=== PATIENT | female | born 1970 | race Caucasian/White ===

== ENCOUNTER 2019-08-31 17:17 | Inpatient (IN) | payer OTHER, BC ==
[~2019-08-31] VITALS: Ht 170.2 cm; Wt 95.4 kg
[~2019-08-31 17:17] MED LIST: CYCL5TAB10; LISI2.5T PO
[2019-08-31] MEDS ORDERED: SODIUM CHLORIDE FLUSH 10ML SYR IVF ONE (18:00)
[2019-08-31 18:09] LABS: MEAN CORPUSCULAR HEMOGLOBIN 39.6 pg (27.0-34.8); MEAN CORPUSCULAR HGB CONC 34.8 g/dL (32.4-35.8); MEAN PLATELET VOLUME 7.5 fL (7.4-10.4); PLATELET COUNT 146 x10^3/uL (130-400); RED BLOOD COUNT 2.18 x10^6/uL (3.82-5.3); RED CELL DISTRIBUTION WIDTH 15.5 % (9.6-15.2)
--- NOTE | 2019-08-31 18:12 | NUR ---
PT REQUESTING WATER TO PROVIDE URINE SAMPLE, OK TO HAVE WATER PER PA. PT RESTING IN GURNEY, FRIEND AT BEDSIDE. CALL LIGHT WITHIN REACH.
[2019-08-31 18:13] LABS: ALBUMIN 3.2 g/dL (3.4-5.0); ANION GAP 15 mmol/L (5-15); CALCIUM 9.1 mg/dL (8.5-10.1); CHLORIDE 82 mmol/L (98-107)
[2019-08-31 18:19] LABS: ALANINE AMINOTRANSFERASE 27 U/L (12-78); ALKALINE PHOSPHATASE 65 U/L (45-117); BILIRUBIN,TOTAL 4.1 mg/dL (0.2-1.0); CREATININE 6.03 mg/dL (0.55-1.02); TOTAL PROTEIN 7.9 g/dL (6.4-8.2); TROPONIN I < 0.015 ng/mL (0.000-0.045)
--- NOTE | 2019-08-31 18:31 | NUR ---
PT UP TO BEDSIDE COMMODE FOR URINE SAMPLE
--- NOTE | 2019-08-31 18:48 | NUR ---
REPORT RECEIVED FROM TAYLER CARDENAS
[2019-08-31 18:56] LABS: MD YES
[2019-08-31 19:00] LABS: EOS#(MANUAL) 0.07 x10^3/uL (0.0-0.4); EOS% (MANUAL) 1 % (1-7); LYMPH#(MANUAL) 0.92 x10^3/uL (1-3.4); LYMPHS% (MANUAL) 13 % (22-44); MONOS#(MANUAL) 0.78 x10^3/uL (0.3-2.7); MONOS% (MANUAL) 11 % (2-9); SEG#(MANUAL) 5.33 x10^3/uL (1.8-6.8); SEGS% (MANUAL) 75 % (42-75)
[2019-08-31] MEDS ORDERED: ALBUMIN HUMAN 25% 100 ML IV ONE (19:00)
[2019-08-31] MEDS ORDERED: SODIUM CHLORIDE 0.9% 1,000ML IVBOLUS ONE (19:00)
[2019-08-31] MEDS ORDERED: SODIUM CHLORIDE 0.9% 1,000 ML IV ONE (19:00)
[2019-08-31 19:02] LABS: <PLATELET ESTIMATE> ADEQUATE; <PLT MORPHOLOGY> NORMAL PLT MORPH
[2019-08-31 19:12] LABS: MICROSCOPIC INDICATED
[2019-08-31 19:19] LABS: INTERNATIONAL NORMALIZED RATIO 1.42 (0.93-1.1); PROTHROMBIN TIME 15.1 Seconds (9.6-11.5)
[2019-08-31] MEDS ORDERED: ONDANSETRON 2MG/ML, 2ML IVPush PRN (20:00)
[2019-08-31 20:22] LABS: CHLORIDE,URINE RANDOM 21 mmol/L; POTASSIUM,URINE RANDOM 56 mmol/L; SODIUM,URINE RANDOM 13 mmol/L
[2019-08-31 20:46] VITALS: BP 102/67
[2019-08-31] MEDS ORDERED: OXYC-306 PO (20:55)
[2019-08-31] MEDS ORDERED: SODIUM CHLORIDE 0.9% 1,000 ML IV SCH (21:00)
[2019-08-31] MEDS ORDERED: TRIA15CR61 TP (21:01)
[2019-08-31] MEDS ORDERED: DICL100G29 TP (21:01)
[2019-08-31] MEDS ORDERED: METO-264 PO (21:01)
[2019-08-31] MEDS ORDERED: FURO20TA3 PO (21:01)
[2019-08-31 21:14] LABS: BILIRUBIN, DIRECT 2.1 mg/dL (0.1-0.2)
[2019-08-31 21:16] LABS: BILIRUBIN,INDIRECT 1.7 mg/dL (0.0-2.0); BILIRUBIN,TOTAL 3.8 mg/dL (0.2-1.0); CREATINE KINASE, TOTAL 56 U/L (26-192)
[2019-08-31] MEDS: CEFTRIAXONE PMX 1GM/50ML 50 ML IV SCH (23:27)
[2019-09-01 00:42] VITALS: BP 100/63
[2019-09-01 05:47] LABS: MEAN CORPUSCULAR HEMOGLOBIN 39.4 pg (27.0-34.8); MEAN CORPUSCULAR HGB CONC 34.3 g/dL (32.4-35.8); MEAN CORPUSCULAR VOLUME 114.7 fL (80-100); MEAN PLATELET VOLUME 6.8 fL (7.4-10.4); PLATELET COUNT 118 x10^3/uL (130-400); RED BLOOD COUNT 2.15 x10^6/uL (3.82-5.3); RED CELL DISTRIBUTION WIDTH 15.6 % (9.6-15.2)
[2019-09-01 06:11] LABS: ANION GAP 13 mmol/L (5-15); CALCIUM 9.2 mg/dL (8.5-10.1); CHLORIDE 83 mmol/L (98-107)
[2019-09-01 06:18] LABS: BASOPHILS # (AUTO) 0.01 x10^3/uL (0-0.1); BASOPHILS % (AUTO) 0 % (0-1); EOSINOPHILS # (AUTO) 0.08 x10^3/uL (0-0.4); EOSINOPHILS % (AUTO) 2 % (1-7); LYMPHOCYTES # (AUTO) 0.69 x10^3/uL (1-3.4); LYMPHOCYTES % (AUTO) 14 % (22-44); MD SCAN; MONOCYTES # (AUTO) 0.63 x10^3/uL (0.2-0.8); MONOCYTES % (AUTO) 13 % (2-9); NEUTROPHILS # (AUTO) 3.65 x10^3/uL (1.8-6.8); NEUTROPHILS % (AUTO) 72 % (42-75)
[2019-09-01 06:22] LABS: CREATININE 6.02 mg/dL (0.55-1.02)
[2019-09-01 06:46] VITALS: BP 107/64
[2019-09-01] MEDS: ALBUMIN HUMAN 25% 100 ML IV SCH ×3 (10:59→22:46)
[2019-09-01 12:27] VITALS: BP 93/59
[2019-09-01 17:47] LABS: ANA SCREEN POSITIVE (Negative)
[2019-09-01 17:49] LABS: ANTI-NUCLEAR ANTIBODY PATTERN NUCLEOLAR
[2019-09-01] MEDS: OXYcodone IR 5MG TABLET PO PRN (18:11)
[2019-09-01 19:41] VITALS: BP 100/60
[2019-09-02] MEDS: CEFTRIAXONE PMX 1GM/50ML 50 ML IV SCH (00:11)
[2019-09-02 00:13] VITALS: BP 105/69
[2019-09-02 05:19] LABS: MEAN CORPUSCULAR HEMOGLOBIN 38.6 pg (27.0-34.8); MEAN CORPUSCULAR HGB CONC 33.3 g/dL (32.4-35.8); MEAN CORPUSCULAR VOLUME 115.7 fL (80-100); PLATELET COUNT 115 x10^3/uL (130-400); RED BLOOD COUNT 1.97 x10^6/uL (3.82-5.3); RED CELL DISTRIBUTION WIDTH 15.4 % (9.6-15.2)
[2019-09-02 05:28] LABS: CHLORIDE 84 mmol/L (98-107)
[2019-09-02 05:36] LABS: ALANINE AMINOTRANSFERASE 21 U/L (12-78); ALBUMIN 3.8 g/dL (3.4-5.0); ALKALINE PHOSPHATASE 57 U/L (45-117); ANION GAP 14 mmol/L (5-15); BILIRUBIN,TOTAL 3.7 mg/dL (0.2-1.0); CREATININE 5.76 mg/dL (0.55-1.02); TOTAL PROTEIN 7.6 g/dL (6.4-8.2)
[2019-09-02 05:45] LABS: BASOPHILS # (AUTO) 0.01 x10^3/uL (0-0.1); BASOPHILS % (AUTO) 0 % (0-1); EOSINOPHILS # (AUTO) 0.08 x10^3/uL (0-0.4); EOSINOPHILS % (AUTO) 2 % (1-7); LYMPHOCYTES # (AUTO) 0.53 x10^3/uL (1-3.4); LYMPHOCYTES % (AUTO) 11 % (22-44); MD SCAN; MONOCYTES # (AUTO) 0.57 x10^3/uL (0.2-0.8); MONOCYTES % (AUTO) 12 % (2-9); NEUTROPHILS % (AUTO) 75 % (42-75)
[2019-09-02 06:48] VITALS: BP 100/62
[2019-09-02] MEDS ORDERED: FUROSEMIDE 40 MG/4 ML IV ONE (10:00)
[2019-09-02] MEDS: OXYcodone IR 5MG TABLET PO PRN ×2 (10:42→20:43)
[2019-09-02 12:15] VITALS: BP 102/66
[2019-09-02 19:41] VITALS: BP 97/61
[2019-09-03] VITALS (7 sets, daily range): BP systolic 98–119; BP diastolic 62–71
[2019-09-03] MEDS: CEFTRIAXONE PMX 1GM/50ML 50 ML IV SCH ×2 (00:22→23:53)
[2019-09-03 06:32] LABS: MEAN CORPUSCULAR HEMOGLOBIN 39.5 pg (27.0-34.8); MEAN CORPUSCULAR HGB CONC 34.4 g/dL (32.4-35.8); MEAN CORPUSCULAR VOLUME 114.8 fL (80-100); PLATELET COUNT 120 x10^3/uL (130-400); RED BLOOD COUNT 2.08 x10^6/uL (3.82-5.3); RED CELL DISTRIBUTION WIDTH 15.7 % (9.6-15.2)
[2019-09-03 06:36] LABS: ALBUMIN 3.7 g/dL (3.4-5.0); ANION GAP 14 mmol/L (5-15); CHLORIDE 85 mmol/L (98-107)
[2019-09-03 06:39] LABS: ALANINE AMINOTRANSFERASE 22 U/L (12-78); ALKALINE PHOSPHATASE 54 U/L (45-117); BILIRUBIN,TOTAL 3.3 mg/dL (0.2-1.0); CREATININE 5.41 mg/dL (0.55-1.02); TOTAL PROTEIN 7.8 g/dL (6.4-8.2)
[2019-09-03 06:48] LABS: BASOPHILS # (AUTO) 0.07 x10^3/uL (0-0.1); BASOPHILS % (AUTO) 1 % (0-1); EOSINOPHILS % (AUTO) 4 % (1-7); LYMPHOCYTES # (AUTO) 0.58 x10^3/uL (1-3.4); LYMPHOCYTES % (AUTO) 13 % (22-44); MD SCAN; MONOCYTES # (AUTO) 0.43 x10^3/uL (0.2-0.8); MONOCYTES % (AUTO) 9 % (2-9); NEUTROPHILS # (AUTO) 3.35 x10^3/uL (1.8-6.8); NEUTROPHILS % (AUTO) 72 % (42-75)
[2019-09-03 09:28] LABS: INTERNATIONAL NORMALIZED RATIO 1.48 (0.93-1.1); PROTHROMBIN TIME 15.7 Seconds (9.6-11.5)
[2019-09-03] MEDS: LACTULOSE 10 GM/15 ML UDC PO SCH ×3 (09:30→20:29)
[2019-09-03] MEDS: OXYcodone IR 5MG TABLET PO PRN ×2 (10:51→17:00)
[2019-09-03 17:59] LABS: INTERNATIONAL NORMALIZED RATIO 1.47 (0.93-1.1); PROTHROMBIN TIME 15.6 Seconds (9.6-11.5)
[2019-09-04] VITALS (8 sets, daily range): BP systolic 96–104; BP diastolic 54–67
[2019-09-04] MEDS: OXYcodone IR 5MG TABLET PO PRN ×3 (00:03→19:18)
[2019-09-04 04:41] LABS: INTERNATIONAL NORMALIZED RATIO 1.52 (0.93-1.1); PROTHROMBIN TIME 16.2 Seconds (9.6-11.5)
[2019-09-04 04:43] LABS: ALBUMIN 3.3 g/dL (3.4-5.0); ANION GAP 12 mmol/L (5-15); CALCIUM 9.2 mg/dL (8.5-10.1); CHLORIDE 88 mmol/L (98-107); CREATININE 4.51 mg/dL (0.55-1.02)
[2019-09-04] MEDS: LACTULOSE 10 GM/15 ML UDC PO SCH ×2 (10:07→20:05)
[2019-09-04] MEDS ORDERED: PHYTONADIONE 5 MG in SODIUM CHLORIDE 0.9% 50 ML IV ONE (11:00)
[2019-09-04] MEDS ORDERED: DIPHENHYDRAMINE 50 MG/ML, 1ML ONE (23:46)
[2019-09-04] MEDS: DIPHENHYDRAMINE 50 MG/ML, 1ML IVPush PRN (23:51)
[2019-09-04] MEDS: CEFTRIAXONE PMX 1GM/50ML 50 ML IV SCH (23:53)
[2019-09-05 00:01] VITALS: BP 103/68
[2019-09-05 04:14] LABS: INTERNATIONAL NORMALIZED RATIO 1.38 (0.93-1.1); PROTHROMBIN TIME 14.7 Seconds (9.6-11.5)
[2019-09-05 04:20] LABS: ALBUMIN 3.7 g/dL (3.4-5.0); ANION GAP 11 mmol/L (5-15); CALCIUM 9.3 mg/dL (8.5-10.1); CHLORIDE 86 mmol/L (98-107)
[2019-09-05 04:22] LABS: CREATININE 4.01 mg/dL (0.55-1.02)
[2019-09-05] MEDS ORDERED: PHYTONADIONE 5 MG in SODIUM CHLORIDE 0.9% 50 ML IV ONE (06:00)
[2019-09-05 07:33] VITALS: BP 91/54
[2019-09-05] MEDS: LACTULOSE 10 GM/15 ML UDC PO SCH ×2 (08:34→20:25)
[2019-09-05] MEDS: OXYcodone IR 5MG TABLET PO PRN ×3 (08:34→20:25)
[2019-09-05] MEDS: SEVELAMER CARBONATE 800MG TAB PO SCH ×3 (08:34→17:25)
[2019-09-05 13:05] VITALS: BP 105/69
[2019-09-05] MEDS ORDERED: DIPHENHYDRAMINE 25 MG CAPSULE ONE (15:36)
[2019-09-05] MEDS: DIPHENHYDRAMINE 25 MG CAPSULE PO PRN (15:39)
[2019-09-05 19:44] VITALS: BP 99/62
[2019-09-06 00:01] VITALS: BP 111/67
[2019-09-06] MEDS: DIPHENHYDRAMINE 25 MG CAPSULE PO PRN ×3 (00:01→21:32)
[2019-09-06] MEDS: CEFTRIAXONE PMX 1GM/50ML 50 ML IV SCH (00:01)
[2019-09-06] MEDS: OXYcodone IR 5MG TABLET PO PRN ×4 (05:17→21:32)
[2019-09-06 07:11] VITALS: BP 102/61
[2019-09-06] MEDS: SEVELAMER CARBONATE 800MG TAB PO SCH ×4 (08:21→19:45)
[2019-09-06] MEDS: LACTULOSE 10 GM/15 ML UDC PO SCH ×2 (08:21→19:45)
[2019-09-06 10:02] LABS: INTERNATIONAL NORMALIZED RATIO 1.3 (0.93-1.1); PROTHROMBIN TIME 13.8 Seconds (9.6-11.5)
[2019-09-06 10:03] LABS: ALBUMIN 3.6 g/dL (3.4-5.0); ANION GAP 13 mmol/L (5-15); CALCIUM 9.3 mg/dL (8.5-10.1); CHLORIDE 87 mmol/L (98-107); CREATININE 3.42 mg/dL (0.55-1.02)
[2019-09-06] MEDS ORDERED: PHYTONADIONE 10 MG/ML, 1ML SQ SCH (12:30)
[2019-09-06 13:35] VITALS: BP 107/68
[2019-09-06 19:46] VITALS: BP 110/70
[2019-09-07] VITALS (11 sets, daily range): BP systolic 93–108; BP diastolic 53–70
[2019-09-07] MEDS: CEFTRIAXONE PMX 1GM/50ML 50 ML IV SCH (00:11)
[2019-09-07] MEDS: OXYcodone IR 5MG TABLET PO PRN ×3 (02:21→17:34)
[2019-09-07 04:49] LABS: INTERNATIONAL NORMALIZED RATIO 1.41 (0.93-1.1)
[2019-09-07 04:53] LABS: ALBUMIN 3.1 g/dL (3.4-5.0); ANION GAP 12 mmol/L (5-15); CALCIUM 9.1 mg/dL (8.5-10.1); CHLORIDE 88 mmol/L (98-107)
[2019-09-07 04:54] LABS: CREATININE 2.94 mg/dL (0.55-1.02)
[2019-09-07] MEDS: DIPHENHYDRAMINE 25 MG CAPSULE PO PRN ×2 (07:12→22:10)
[2019-09-07] MEDS: LACTULOSE 10 GM/15 ML UDC PO SCH ×2 (07:58→22:10)
[2019-09-07] MEDS: SEVELAMER CARBONATE 800MG TAB PO SCH ×3 (07:58→17:34)
[2019-09-07] MEDS: PHYTONADIONE 10 MG/ML, 1ML SQ SCH (08:08)
[2019-09-07] MEDS ORDERED: PHYTONADIONE 10 MG/ML, 1ML SQ SCH ×2 (09:00)
[2019-09-07 10:34] LABS: INTERNATIONAL NORMALIZED RATIO 1.28 (0.93-1.1); PROTHROMBIN TIME 13.6 Seconds (9.6-11.5)
[2019-09-07] MEDS ORDERED: LIDOCAINE 1%, 20ML ONE (11:03)
[2019-09-07] MEDS ORDERED: FLUMAZENIL 0.1 MG/1 ML, 5ML ONE (11:34)
[2019-09-07] MEDS ORDERED: NALOXONE 1 MG/ML, 2ML ONE (11:34)
[2019-09-07] MEDS ORDERED: FENTANYL PF 100 MCG/2ML ONE (11:34)
[2019-09-07] MEDS ORDERED: MIDAZOLAM 1 MG/ML, 5ML ONE (11:34)
[2019-09-07] MEDS ORDERED: POTASSIUM CHLORIDE 20 MEQ TAB.ER.PRT PO ONE (12:00)
[2019-09-07] MEDS: SPIRONOLACTONE 25 MG TABLET PO SCH ×2 (12:00→22:10)
[2019-09-08] VITALS (7 sets, daily range): BP systolic 96–106; BP diastolic 60–70
[2019-09-08] MEDS: OXYcodone IR 5MG TABLET PO PRN ×5 (00:36→22:43)
[2019-09-08] MEDS: CEFTRIAXONE PMX 1GM/50ML 50 ML IV SCH (00:45)
[2019-09-08 05:06] LABS: INTERNATIONAL NORMALIZED RATIO 1.34 (0.93-1.1); PROTHROMBIN TIME 14.2 Seconds (9.6-11.5)
[2019-09-08 05:09] LABS: ALBUMIN 3.3 g/dL (3.4-5.0); ANION GAP 10 mmol/L (5-15); CALCIUM 8.9 mg/dL (8.5-10.1); CHLORIDE 93 mmol/L (98-107)
[2019-09-08 05:10] LABS: CREATININE 2.17 mg/dL (0.55-1.02)
[2019-09-08 05:11] LABS: MEAN CORPUSCULAR HEMOGLOBIN 39.7 pg (27.0-34.8); MEAN CORPUSCULAR HGB CONC 34.8 g/dL (32.4-35.8); MEAN CORPUSCULAR VOLUME 114.1 fL (80-100); MEAN PLATELET VOLUME 6.3 fL (7.4-10.4); PLATELET COUNT 95 x10^3/uL (130-400); RED CELL DISTRIBUTION WIDTH 15.5 % (9.6-15.2)
[2019-09-08 05:52] LABS: MD YES
[2019-09-08 05:54] LABS: ANISOCYTOSIS 1+; EOS#(MANUAL) 0.09 x10^3/uL (0.0-0.4); EOS% (MANUAL) 2 % (1-7); LYMPH#(MANUAL) 0.61 x10^3/uL (1-3.4); LYMPHS% (MANUAL) 13 % (22-44); MONOS#(MANUAL) 0.19 x10^3/uL (0.3-2.7); MONOS% (MANUAL) 4 % (2-9); SEG#(MANUAL) 3.81 x10^3/uL (1.8-6.8); SEGS% (MANUAL) 81 % (42-75)
[2019-09-08 05:55] LABS: <PLATELET ESTIMATE> DECREASED; <PLT MORPHOLOGY> NORMAL PLT MORPH
[2019-09-08] MEDS: SEVELAMER CARBONATE 800MG TAB PO SCH ×3 (08:00→17:00)
[2019-09-08] MEDS: LACTULOSE 10 GM/15 ML UDC PO SCH ×2 (09:00→20:01)
[2019-09-08] MEDS ORDERED: POTASSIUM CHLORIDE 20 MEQ TAB.ER.PRT PO ONE (10:00)
[2019-09-08] MEDS: PHYTONADIONE 10 MG/ML, 1ML SQ SCH (13:38)
[2019-09-08] MEDS: DIPHENHYDRAMINE 25 MG CAPSULE PO PRN (22:42)
[2019-09-09] VITALS (13 sets, daily range): BP systolic 91–107; BP diastolic 59–72
[2019-09-09] MEDS: CEFTRIAXONE PMX 1GM/50ML 50 ML IV SCH (00:45)
[2019-09-09 03:23] LABS: MEAN CORPUSCULAR HEMOGLOBIN 37.7 pg (27.0-34.8); MEAN CORPUSCULAR HGB CONC 33.5 g/dL (32.4-35.8); MEAN CORPUSCULAR VOLUME 112.5 fL (80-100); MEAN PLATELET VOLUME 6.6 fL (7.4-10.4); PLATELET COUNT 90 x10^3/uL (130-400); RED BLOOD COUNT 1.96 x10^6/uL (3.82-5.3); RED CELL DISTRIBUTION WIDTH 17.8 % (9.6-15.2)
[2019-09-09 03:24] LABS: ALBUMIN 3.4 g/dL (3.4-5.0); ANION GAP 9 mmol/L (5-15); CALCIUM 8.9 mg/dL (8.5-10.1); CHLORIDE 98 mmol/L (98-107)
[2019-09-09] MEDS: OXYcodone IR 5MG TABLET PO PRN ×4 (04:09→22:02)
[2019-09-09 04:10] LABS: BASOPHILS # (AUTO) 0.03 x10^3/uL (0-0.1); BASOPHILS % (AUTO) 1 % (0-1); EOSINOPHILS # (AUTO) 0.34 x10^3/uL (0-0.4); EOSINOPHILS % (AUTO) 6 % (1-7); LYMPHOCYTES # (AUTO) 0.69 x10^3/uL (1-3.4); LYMPHOCYTES % (AUTO) 13 % (22-44); MD SCAN; MONOCYTES # (AUTO) 0.71 x10^3/uL (0.2-0.8); MONOCYTES % (AUTO) 13 % (2-9); NEUTROPHILS # (AUTO) 3.57 x10^3/uL (1.8-6.8); NEUTROPHILS % (AUTO) 67 % (42-75)
[2019-09-09 04:32] LABS: THROMBIN TIME 21.2 Seconds (14-19)
[2019-09-09 04:33] LABS: INTERNATIONAL NORMALIZED RATIO 1.38 (0.93-1.1); PROTHROMBIN TIME 14.7 Seconds (9.6-11.5)
[2019-09-09] MEDS: DIPHENHYDRAMINE 25 MG CAPSULE PO PRN ×3 (05:26→20:48)
[2019-09-09] MEDS: PHYTONADIONE 10 MG/ML, 1ML SQ SCH (07:48)
[2019-09-09] MEDS: SEVELAMER CARBONATE 800MG TAB PO SCH ×3 (08:00→17:40)
[2019-09-09 08:54] LABS: INTERNATIONAL NORMALIZED RATIO 1.25 (0.93-1.1); PROTHROMBIN TIME 13.3 Seconds (9.6-11.5)
[2019-09-09] MEDS: LACTULOSE 10 GM/15 ML UDC PO SCH ×2 (09:00→20:47)
[2019-09-10] VITALS (11 sets, daily range): BP systolic 90–110; BP diastolic 60–71
[2019-09-10] MEDS: OXYcodone IR 5MG TABLET PO PRN ×4 (02:55→20:43)
[2019-09-10] MEDS: DIPHENHYDRAMINE 25 MG CAPSULE PO PRN ×3 (06:01→20:42)
[2019-09-10 06:21] LABS: MEAN CORPUSCULAR HEMOGLOBIN 38.7 pg (27.0-34.8); MEAN CORPUSCULAR HGB CONC 34.1 g/dL (32.4-35.8); MEAN CORPUSCULAR VOLUME 113.7 fL (80-100); MEAN PLATELET VOLUME 6.6 fL (7.4-10.4); PLATELET COUNT 87 x10^3/uL (130-400); RED BLOOD COUNT 1.87 x10^6/uL (3.82-5.3); RED CELL DISTRIBUTION WIDTH 17.5 % (9.6-15.2)
[2019-09-10 06:24] LABS: ALBUMIN 3.4 g/dL (3.4-5.0); ANION GAP 9 mmol/L (5-15); CHLORIDE 97 mmol/L (98-107); CREATININE 1.64 mg/dL (0.55-1.02)
[2019-09-10 06:37] LABS: BASOPHILS # (AUTO) 0.04 x10^3/uL (0-0.1); BASOPHILS % (AUTO) 1 % (0-1); EOSINOPHILS # (AUTO) 0.33 x10^3/uL (0-0.4); EOSINOPHILS % (AUTO) 6 % (1-7); LYMPHOCYTES # (AUTO) 0.86 x10^3/uL (1-3.4); LYMPHOCYTES % (AUTO) 16 % (22-44); MD SCAN; MONOCYTES # (AUTO) 0.69 x10^3/uL (0.2-0.8); MONOCYTES % (AUTO) 12 % (2-9); NEUTROPHILS # (AUTO) 3.64 x10^3/uL (1.8-6.8); NEUTROPHILS % (AUTO) 66 % (42-75)
[2019-09-10] MEDS: SEVELAMER CARBONATE 800MG TAB PO SCH (08:00)
[2019-09-10 08:12] LABS: INTERNATIONAL NORMALIZED RATIO 1.32 (0.93-1.1)
[2019-09-10] MEDS: PHYTONADIONE 10 MG/ML, 1ML SQ SCH (08:12)
[2019-09-10] MEDS: LACTULOSE 10 GM/15 ML UDC PO SCH ×2 (08:34→20:42)
[2019-09-11 00:12] VITALS: BP 99/62
[2019-09-11] MEDS: OXYcodone IR 5MG TABLET PO PRN ×4 (05:04→19:59)
[2019-09-11 06:17] LABS: INTERNATIONAL NORMALIZED RATIO 1.31 (0.93-1.1); PROTHROMBIN TIME 13.9 Seconds (9.6-11.5)
[2019-09-11 06:19] LABS: MEAN CORPUSCULAR HEMOGLOBIN 38.8 pg (27.0-34.8); MEAN CORPUSCULAR HGB CONC 34.2 g/dL (32.4-35.8); MEAN CORPUSCULAR VOLUME 113.6 fL (80-100); MEAN PLATELET VOLUME 6.8 fL (7.4-10.4); PLATELET COUNT 94 x10^3/uL (130-400); RED BLOOD COUNT 1.88 x10^6/uL (3.82-5.3)
[2019-09-11 06:25] LABS: CHLORIDE 100 mmol/L (98-107)
[2019-09-11 06:38] LABS: ALANINE AMINOTRANSFERASE 19 U/L (12-78); ALBUMIN 3.6 g/dL (3.4-5.0); ALKALINE PHOSPHATASE 54 U/L (45-117); ANION GAP 10 mmol/L (5-15); BILIRUBIN,TOTAL 5.3 mg/dL (0.2-1.0); CALCIUM 8.9 mg/dL (8.5-10.1); CREATININE 1.56 mg/dL (0.55-1.02); TOTAL PROTEIN 7.6 g/dL (6.4-8.2)
[2019-09-11 06:40] LABS: BASOPHILS # (AUTO) 0.05 x10^3/uL (0-0.1); BASOPHILS % (AUTO) 1 % (0-1); EOSINOPHILS % (AUTO) 6 % (1-7); LYMPHOCYTES # (AUTO) 0.78 x10^3/uL (1-3.4); LYMPHOCYTES % (AUTO) 17 % (22-44); MD SCAN; MONOCYTES # (AUTO) 0.62 x10^3/uL (0.2-0.8); MONOCYTES % (AUTO) 13 % (2-9); NEUTROPHILS # (AUTO) 2.98 x10^3/uL (1.8-6.8); NEUTROPHILS % (AUTO) 63 % (42-75)
[2019-09-11 07:26] VITALS: BP 100/66
[2019-09-11] MEDS: LACTULOSE 10 GM/15 ML UDC PO SCH ×3 (08:58→19:53)
[2019-09-11] MEDS: PHYTONADIONE 10 MG/ML, 1ML SQ SCH ×2 (09:03→11:56)
[2019-09-11] MEDS: DIPHENHYDRAMINE 25 MG CAPSULE PO PRN ×2 (09:03→15:50)
[2019-09-11] MEDS: PHYTONADIONE 10 MG/ML, 1ML SQ ONE ×2 (11:00→11:35)
[2019-09-11 13:13] VITALS: BP 113/79
[2019-09-11 15:04] LABS: INTERNATIONAL NORMALIZED RATIO 1.32 (0.93-1.1)
[2019-09-11 18:58] VITALS: BP 101/66
[2019-09-11] MEDS: DIPHENHYDRAMINE 50 MG/ML, 1ML IVPush PRN (22:20)
[2019-09-12 01:05] VITALS: BP 107/67
[2019-09-12] MEDS: OXYcodone IR 5MG TABLET PO PRN ×5 (01:07→19:47)
[2019-09-12] MEDS: DIPHENHYDRAMINE 25 MG CAPSULE PO PRN ×3 (05:13→19:46)
[2019-09-12 05:22] LABS: ALBUMIN 3.6 g/dL (3.4-5.0); ANION GAP 7 mmol/L (5-15); CHLORIDE 100 mmol/L (98-107); CREATININE 1.92 mg/dL (0.55-1.02); MEAN CORPUSCULAR HEMOGLOBIN 38.2 pg (27.0-34.8); MEAN CORPUSCULAR HGB CONC 33.7 g/dL (32.4-35.8); MEAN CORPUSCULAR VOLUME 113.5 fL (80-100); MEAN PLATELET VOLUME 6.9 fL (7.4-10.4); PLATELET COUNT 104 x10^3/uL (130-400); RED BLOOD COUNT 1.94 x10^6/uL (3.82-5.3); RED CELL DISTRIBUTION WIDTH 17.8 % (9.6-15.2)
[2019-09-12 05:24] LABS: INTERNATIONAL NORMALIZED RATIO 1.32 (0.93-1.1)
[2019-09-12 05:58] LABS: HCT (SEDRATE) 22.1 % (34.6-47.8)
[2019-09-12 06:20] LABS: BASOPHILS # (AUTO) 0.06 x10^3/uL (0-0.1); BASOPHILS % (AUTO) 1 % (0-1); EOSINOPHILS # (AUTO) 0.27 x10^3/uL (0-0.4); EOSINOPHILS % (AUTO) 6 % (1-7); LYMPHOCYTES # (AUTO) 0.81 x10^3/uL (1-3.4); LYMPHOCYTES % (AUTO) 17 % (22-44); MD SCAN; MONOCYTES # (AUTO) 0.59 x10^3/uL (0.2-0.8); MONOCYTES % (AUTO) 12 % (2-9); NEUTROPHILS # (AUTO) 3.05 x10^3/uL (1.8-6.8); NEUTROPHILS % (AUTO) 64 % (42-75)
[2019-09-12 07:19] VITALS: BP 100/64
[2019-09-12] MEDS: LACTULOSE 10 GM/15 ML UDC PO SCH ×2 (09:36→19:46)
[2019-09-12] MEDS: PHYTONADIONE 10 MG/ML, 1ML SQ SCH (09:37)
[2019-09-12 20:57] VITALS: BP 97/60
[2019-09-13] MEDS: OXYcodone IR 5MG TABLET PO PRN ×5 (00:10→20:36)
[2019-09-13 03:12] VITALS: BP 102/64
[2019-09-13] MEDS: DIPHENHYDRAMINE 25 MG CAPSULE PO PRN ×3 (04:59→17:39)
[2019-09-13 05:42] LABS: MEAN CORPUSCULAR HEMOGLOBIN 38.3 pg (27.0-34.8); MEAN CORPUSCULAR HGB CONC 33.9 g/dL (32.4-35.8); MEAN CORPUSCULAR VOLUME 113.2 fL (80-100); MEAN PLATELET VOLUME 6.7 fL (7.4-10.4); PLATELET COUNT 104 x10^3/uL (130-400); RED BLOOD COUNT 1.87 x10^6/uL (3.82-5.3); RED CELL DISTRIBUTION WIDTH 17.7 % (9.6-15.2)
[2019-09-13 05:51] LABS: ANION GAP 8 mmol/L (5-15); CALCIUM 8.6 mg/dL (8.5-10.1); CHLORIDE 102 mmol/L (98-107); CREATININE 1.72 mg/dL (0.55-1.02)
[2019-09-13 07:16] LABS: BASOPHILS # (AUTO) 0.08 x10^3/uL (0-0.1); BASOPHILS % (AUTO) 2 % (0-1); EOSINOPHILS # (AUTO) 0.25 x10^3/uL (0-0.4); EOSINOPHILS % (AUTO) 6 % (1-7); LYMPHOCYTES # (AUTO) 0.85 x10^3/uL (1-3.4); LYMPHOCYTES % (AUTO) 19 % (22-44); MD SCAN; MONOCYTES # (AUTO) 0.63 x10^3/uL (0.2-0.8); MONOCYTES % (AUTO) 14 % (2-9); NEUTROPHILS # (AUTO) 2.73 x10^3/uL (1.8-6.8); NEUTROPHILS % (AUTO) 60 % (42-75)
[2019-09-13] MEDS: LACTULOSE 10 GM/15 ML UDC PO SCH ×2 (08:15→20:30)
[2019-09-13] MEDS: PHYTONADIONE 10 MG/ML, 1ML SQ SCH (08:15)
[2019-09-13 09:05] VITALS: BP_SYST 10; BP_SYST 107; BP_DIAS 70
[2019-09-13] MEDS: NEUTRA PHOS K 250 MG TABLET PO SCH ×3 (10:00→20:30)
[2019-09-13 11:26] LABS: INTERNATIONAL NORMALIZED RATIO 1.35 (0.93-1.1); PROTHROMBIN TIME 14.3 Seconds (9.6-11.5)
[2019-09-13 13:06] VITALS: BP 99/64
[2019-09-13] MEDS ORDERED: PHYTONADIONE 10 MG/ML, 1ML SQ ONE (14:00)
[2019-09-13 19:55] VITALS: BP 98/61
[2019-09-14 00:43] VITALS: BP 105/68
[2019-09-14] MEDS: DIPHENHYDRAMINE 25 MG CAPSULE PO PRN ×3 (00:49→15:24)
[2019-09-14] MEDS: OXYcodone IR 5MG TABLET PO PRN ×4 (00:49→20:46)
[2019-09-14 05:46] LABS: INTERNATIONAL NORMALIZED RATIO 1.38 (0.93-1.1); PROTHROMBIN TIME 14.7 Seconds (9.6-11.5)
[2019-09-14 05:51] LABS: ANION GAP 9 mmol/L (5-15); CALCIUM 8.8 mg/dL (8.5-10.1); CHLORIDE 101 mmol/L (98-107)
[2019-09-14 05:52] LABS: CREATININE 2.06 mg/dL (0.55-1.02)
[2019-09-14 05:59] LABS: MEAN CORPUSCULAR HEMOGLOBIN 38.4 pg (27.0-34.8); MEAN CORPUSCULAR VOLUME 112.8 fL (80-100); MEAN PLATELET VOLUME 6.8 fL (7.4-10.4); PLATELET COUNT 110 x10^3/uL (130-400); RED BLOOD COUNT 1.89 x10^6/uL (3.82-5.3); RED CELL DISTRIBUTION WIDTH 17.3 % (9.6-15.2)
[2019-09-14 06:21] LABS: BASOPHILS # (AUTO) 0.07 x10^3/uL (0-0.1); BASOPHILS % (AUTO) 2 % (0-1); EOSINOPHILS # (AUTO) 0.22 x10^3/uL (0-0.4); EOSINOPHILS % (AUTO) 6 % (1-7); LYMPHOCYTES # (AUTO) 0.79 x10^3/uL (1-3.4); LYMPHOCYTES % (AUTO) 20 % (22-44); MD SCAN; MONOCYTES # (AUTO) 0.53 x10^3/uL (0.2-0.8); MONOCYTES % (AUTO) 14 % (2-9); NEUTROPHILS # (AUTO) 2.28 x10^3/uL (1.8-6.8); NEUTROPHILS % (AUTO) 59 % (42-75)
[2019-09-14 06:51] VITALS: BP 105/65
[2019-09-14 06:52] VITALS: BP 101/65
[2019-09-14] MEDS: LACTULOSE 10 GM/15 ML UDC PO SCH ×2 (07:59→20:46)
[2019-09-14] MEDS: PHYTONADIONE 10 MG/ML, 1ML SQ SCH (09:00)
[2019-09-14 12:30] VITALS: BP 100/63
[2019-09-14 20:23] VITALS: BP 106/68
[2019-09-15] MEDS: OXYcodone IR 5MG TABLET PO PRN ×2 (00:49→06:43)
[2019-09-15 02:00] VITALS: BP 103/67
[2019-09-15] MEDS: DIPHENHYDRAMINE 25 MG CAPSULE PO PRN ×2 (02:58→10:00)
[2019-09-15 05:25] LABS: INTERNATIONAL NORMALIZED RATIO 1.35 (0.93-1.1); PROTHROMBIN TIME 14.4 Seconds (9.6-11.5)
[2019-09-15 05:30] LABS: ANION GAP 6 mmol/L (5-15); CALCIUM 8.7 mg/dL (8.5-10.1); CHLORIDE 101 mmol/L (98-107)
[2019-09-15 05:33] LABS: CREATININE 1.76 mg/dL (0.55-1.02)
[2019-09-15 05:38] LABS: MEAN CORPUSCULAR HEMOGLOBIN 38.4 pg (27.0-34.8); PLATELET COUNT 110 x10^3/uL (130-400); RED BLOOD COUNT 1.91 x10^6/uL (3.82-5.3); RED CELL DISTRIBUTION WIDTH 17.3 % (9.6-15.2)
[2019-09-15 05:58] LABS: BASOPHILS # (AUTO) 0.05 x10^3/uL (0-0.1); BASOPHILS % (AUTO) 1 % (0-1); EOSINOPHILS # (AUTO) 0.18 x10^3/uL (0-0.4); EOSINOPHILS % (AUTO) 5 % (1-7); LYMPHOCYTES # (AUTO) 0.74 x10^3/uL (1-3.4); LYMPHOCYTES % (AUTO) 20 % (22-44); MD SCAN; MONOCYTES % (AUTO) 16 % (2-9); NEUTROPHILS # (AUTO) 2.12 x10^3/uL (1.8-6.8); NEUTROPHILS % (AUTO) 58 % (42-75)
[2019-09-15 06:55] VITALS: BP 99/62
[2019-09-15] MEDS: LACTULOSE 10 GM/15 ML UDC PO SCH (09:50)
[2019-09-15] MEDS: PHYTONADIONE 10 MG/ML, 1ML SQ SCH (09:50)
[2019-09-15] MEDS ORDERED: LACT10SO24 PO (10:33)
== END 2019-09-15 11:45 | disposition home or self-care (01) | DRG 674 ==
LOC: ED 18:40 → EDIP 19:27 → 4EST 20:40 → DCLOUNGE 09-15 11:27
PROVIDERS: ADMIT Internal Medicine; ATTEND Hospitalist
PROC: 0JH63XZ Insertion of Tunneled Vascular Access Device into Chest Subcutaneous Tissue and Fascia, Percutaneous Approach (ICD-10-PCS; 2019-09-07)
PROC: 05HM33Z Insertion of Infusion Device into Right Internal Jugular Vein, Percutaneous Approach (ICD-10-PCS; 2019-09-07)
PROC: B5131ZA Fluoroscopy of Right Jugular Veins using Low Osmolar Contrast, Guidance (ICD-10-PCS; 2019-09-07)
PROC: 5A1D70Z Performance of Urinary Filtration, Intermittent, Less than 6 Hours Per Day (ICD-10-PCS; 2019-09-07)
PROC: 30233N1 Transfusion of Nonautologous Red Blood Cells into Peripheral Vein, Percutaneous Approach (ICD-10-PCS; principal; 2019-09-12)
PROC: 30233L1 Transfusion of Nonautologous Fresh Plasma into Peripheral Vein, Percutaneous Approach (ICD-10-PCS; 2019-09-12)
DX: N17.0 Acute kidney failure with tubular necrosis (principal); E87.1 Hypo-osmolality and hyponatremia; N39.0 Urinary tract infection, site not specified; R18.8 Other ascites; Z96.651 Presence of right artificial knee joint; E80.6 Other disorders of bilirubin metabolism; G89.29 Other chronic pain; M79.672 Pain in left foot; D63.1 Anemia in chronic kidney disease; E83.39 Other disorders of phosphorus metabolism; E86.9 Volume depletion, unspecified; E87.6 Hypokalemia; E87.70 Fluid overload, unspecified; I07.1 Rheumatic tricuspid insufficiency; I12.9 Hypertensive chronic kidney disease with stage 1 through stage 4 chronic kidney disease, or unspecified chronic kidney disease; K70.40 Alcoholic hepatic failure without coma; M32.9 Systemic lupus erythematosus, unspecified; N18.9 Chronic kidney disease, unspecified; Z79.01 Long term (current) use of anticoagulants; Z79.899 Other long term (current) drug therapy; Z91.14 Patient's other noncompliance with medication regimen; Z88.1 Allergy status to other antibiotic agents; Z80.3 Family history of malignant neoplasm of breast; Z82.49 Family history of ischemic heart disease and other diseases of the circulatory system
CPT/HCPCS: 36415; 84145; 85613; 85730; 85732; 96374; 99291; J3490; 36558; 36565; 71045; 76700; 76937; 80048; 80053; 80069; 80074; 80307; 81001; 82103; 82140; 82247; 82248; 82306; 82436; 82550; 82570; 83036; 83516; 83520; 83735; 83880; 83930; 83935; 83970; 84100; 84133; 84300; 84443; 84484; 85014; 85018; 85025; 85240; 85260; 85384; 85610; 85651; 85670; 86038; 86039; 86160; 86162; 86225; 86256; 86480; 86706; 86850; 86900; 86923; 87040; 87086; 90935; 93005; 93306; 99156; 99157; G0378; J0696; J1940; J2250; J3010; J3430; P9047; C1750; J1200; J1642; J2310; J7030; P9016; P9017; Q0163

== ENCOUNTER 2019-10-03 15:58 | Emergency (ER) | payer OTHER, BC ==
[~2019-10-03] VITALS: Ht 170.2 cm; Wt 81.9 kg
[~2019-10-03 15:58] MED LIST changes: +DICL100G29 TP; +FURO20TA3 PO; +LACT10SO24 PO; +METO-264 PO; +OXYC-306 PO; +TRIA15CR61 TP
[2019-10-03 16:59] LABS: ALANINE AMINOTRANSFERASE 23 U/L (12-78); ALBUMIN 3.4 g/dL (3.4-5.0); ANION GAP 7 mmol/L (5-15); CALCIUM 8.6 mg/dL (8.5-10.1); CHLORIDE 95 mmol/L (98-107); CREATININE 0.75 mg/dL (0.55-1.02); INTERNATIONAL NORMALIZED RATIO 1.62 (0.93-1.1); PROTHROMBIN TIME 17.3 Seconds (9.6-11.5)
[2019-10-03] MEDS ORDERED: SODIUM CHLORIDE FLUSH 10ML SYR IVF ONE (17:00)
[2019-10-03 17:02] LABS: ALKALINE PHOSPHATASE 60 U/L (45-117); BILIRUBIN,TOTAL 7.4 mg/dL (0.2-1.0)
--- NOTE | 2019-10-03 17:03 | NUR ---
TASK RN NOTE: PT SITTING UP IN BED WATCHING TELEVISION. NAD NOTED AT THIS TIME. VSS. BLANKETS APPLIED. AWAITING LAB RESULTS.
[2019-10-03 17:10] LABS: BASOPHILS # (AUTO) 0.01 x10^3/uL (0-0.1); BASOPHILS % (AUTO) 0 % (0-1); EOSINOPHILS # (AUTO) 0.12 x10^3/uL (0-0.4); EOSINOPHILS % (AUTO) 3 % (1-7); LYMPHOCYTES # (AUTO) 0.81 x10^3/uL (1-3.4); LYMPHOCYTES % (AUTO) 20 % (22-44); MD MORPH REVIEW ONLY; MEAN CORPUSCULAR HEMOGLOBIN 39.5 pg (27.0-34.8); MEAN CORPUSCULAR HGB CONC 34.8 g/dL (32.4-35.8); MEAN CORPUSCULAR VOLUME 113.2 fL (80-100); MEAN PLATELET VOLUME 6.6 fL (7.4-10.4); MONOCYTES # (AUTO) 0.53 x10^3/uL (0.2-0.8); MONOCYTES % (AUTO) 13 % (2-9); NEUTROPHILS # (AUTO) 2.63 x10^3/uL (1.8-6.8); NEUTROPHILS % (AUTO) 64 % (42-75); PLATELET COUNT 99 x10^3/uL (130-400); RED BLOOD COUNT 1.84 x10^6/uL (3.82-5.3)
[2019-10-03 17:23] LABS: ANISOCYTOSIS 1+; OVALOCYTES 1+; POLYCHROMASIA 1+
--- NOTE | 2019-10-03 17:23 | NUR ---
TASK RN NOTE: ERMD IN TO DISCUSS LAB FINDINGS WITH PT. NO SIGNIFICANT CHANGES OVER PAST MONTH IN LAB VALUES. PLAN FOR ERMD TO CONSULT WITH NICKING MACHINE OPERATOR. PT VERBALIZES UNDERSTANDING OF PLAN. HOB TO LEVEL OF COMFORT, BEAR WARMER GIVEN UNDER BLANKETS. PT WATCHING TELEVISION WITH FRIEND, WHO IS AT THE BEDSIDE. CALL LIGHT IN REACH.
[2019-10-03 17:24] LABS: <PLATELET ESTIMATE> DECREASED; <PLT MORPHOLOGY> NORMAL PLT MORPH; HYPOCHROMIA 1+; RED CELL DISTRIBUTION WIDTH 20.1 % (9.6-15.2)
[2019-10-03] MEDS ORDERED: POTASSIUM CHLORIDE 20 MEQ TAB.ER.PRT PO ONE (17:30)
[2019-10-03] MEDS ORDERED: POTASSIUM CHLORIDE 20 MEQ TAB.ER.PRT ONE (17:35)
[2019-10-03 18:08] VITALS: BP 107/81
== END 2019-10-03 18:11 | disposition home or self-care (01) ==
LOC: ED 16:54
DX: N18.6 End stage renal disease (principal); I12.0 Hypertensive chronic kidney disease with stage 5 chronic kidney disease or end stage renal disease; Z99.2 Dependence on renal dialysis; D53.9 Nutritional anemia, unspecified; E87.6 Hypokalemia
CPT/HCPCS: 36415; 80053; 83690; 85025; 85610; 85730; 86850; 86900; 99283

== ENCOUNTER 2019-11-12 07:53 | Day surgery (SDC) | payer OTHER, BC ==
[2019-11-09 16:03] LABS: MEAN CORPUSCULAR HEMOGLOBIN 37.8 pg (27.0-34.8); MEAN CORPUSCULAR HGB CONC 34.1 g/dL (32.4-35.8); MEAN CORPUSCULAR VOLUME 110.7 fL (80-100); MEAN PLATELET VOLUME 6.1 fL (7.4-10.4); PLATELET COUNT 144 x10^3/uL (130-400); RED BLOOD COUNT 2.18 x10^6/uL (3.82-5.3); RED CELL DISTRIBUTION WIDTH 15.7 % (9.6-15.2)
[2019-11-09 16:11] LABS: ALANINE AMINOTRANSFERASE 102 U/L (12-78); ALBUMIN 3.3 g/dL (3.4-5.0); ANION GAP 8 mmol/L (5-15); CALCIUM 9.2 mg/dL (8.5-10.1); CHLORIDE 91 mmol/L (98-107); CREATININE 0.66 mg/dL (0.55-1.02); INTERNATIONAL NORMALIZED RATIO 1.34 (0.93-1.1); PROTHROMBIN TIME 14.2 Seconds (9.6-11.5)
[2019-11-09 16:13] LABS: ALKALINE PHOSPHATASE 184 U/L (45-117); BILIRUBIN,TOTAL 2.9 mg/dL (0.2-1.0); TOTAL PROTEIN 7.5 g/dL (6.4-8.2)
[2019-11-09 16:19] LABS: BASOPHILS # (AUTO) 0.01 x10^3/uL (0-0.1); BASOPHILS % (AUTO) 0 % (0-1); EOSINOPHILS # (AUTO) 0.02 x10^3/uL (0-0.4); EOSINOPHILS % (AUTO) 0 % (1-7); LYMPHOCYTES # (AUTO) 0.44 x10^3/uL (1-3.4); LYMPHOCYTES % (AUTO) 12 % (22-44); MD SCAN; MONOCYTES # (AUTO) 0.23 x10^3/uL (0.2-0.8); MONOCYTES % (AUTO) 6 % (2-9); NEUTROPHILS % (AUTO) 81 % (42-75)
[~2019-11-12] VITALS: Ht 170.2 cm; Wt 78.6 kg
[~2019-11-12 07:53] MED LIST changes: +B COMPLETE PO; +CEPH-376 PO; +GABAPENTIN PO; +LACT10SO28 PO; +OXYC5CAP2 PO; +POTASSIUM PO; +PRED10TA PO; +RIFA550T4 PO; +SPIR25TA5 PO; +VITA10004 PO; +VITA100T PO; +ZINC100T PO
[2019-11-12 08:45] VITALS: BP 116/70
[2019-11-12] MEDS ORDERED: GABA300C PO ×2 (08:50)
[2019-11-12] MEDS ORDERED: LACTATED RINGERS 1,000 ML IV SCH (08:53)
[2019-11-12] MEDS ORDERED: CHLORHEXIDINE 15 ML UDC MM ONE (09:00)
[2019-11-12] MEDS ORDERED: ONDANSETRON 2MG/ML, 2ML IVPush PRN (09:00)
[2019-11-12] MEDS ORDERED: FENTANYL PF 100 MCG/2ML IV PRN (09:00)
[2019-11-12] MEDS ORDERED: MIDAZOLAM 1 MG/ML, 2ML ONE (09:04)
[2019-11-12] MEDS ORDERED: PROPOFOL 50 ML ONE (09:05)
== END 2019-11-12 11:20 | disposition home or self-care (01) ==
LOC: OUT 07:53
PROVIDERS: ATTEND Internal Medicine Gastroenterology
DX: Z12.11 Encounter for screening for malignant neoplasm of colon (principal); Z11.59 Encounter for screening for other viral diseases; K31.89 Other diseases of stomach and duodenum; D12.5 Benign neoplasm of sigmoid colon; K44.9 Diaphragmatic hernia without obstruction or gangrene; K22.2 Esophageal obstruction; K25.9 Gastric ulcer, unspecified as acute or chronic, without hemorrhage or perforation; I12.0 Hypertensive chronic kidney disease with stage 5 chronic kidney disease or end stage renal disease; N18.6 End stage renal disease; Z88.1 Allergy status to other antibiotic agents; D64.9 Anemia, unspecified; Z99.2 Dependence on renal dialysis; Z72.89 Other problems related to lifestyle; Z79.899 Other long term (current) drug therapy; Z98.890 Other specified postprocedural states
CPT/HCPCS: 36415; 43239; 45385; 80053; 82140; 84703; 85025; 85610; 85730; 87635; 88305; 93005; J2250; J2704; J7120

== ENCOUNTER → 2019-11-13 | Outpatient (CLI) | payer OTHER, BC ==
[~2019-11-13] MED LIST changes: +GABA300C PO; +MULT-658 PO
== END | disposition home or self-care (01) ==
LOC: WOUND 08:55
PROVIDERS: ATTEND Family Medicine
DX: I87.313 Chronic venous hypertension (idiopathic) with ulcer of bilateral lower extremity (principal); E11.621 Type 2 diabetes mellitus with foot ulcer; L97.521 Non-pressure chronic ulcer of other part of left foot limited to breakdown of skin; L97.511 Non-pressure chronic ulcer of other part of right foot limited to breakdown of skin; K70.31 Alcoholic cirrhosis of liver with ascites; R26.9 Unspecified abnormalities of gait and mobility; E11.22 Type 2 diabetes mellitus with diabetic chronic kidney disease; I12.0 Hypertensive chronic kidney disease with stage 5 chronic kidney disease or end stage renal disease; N18.6 End stage renal disease; E66.8 Other obesity; Z68.27 Body mass index [BMI] 27.0-27.9, adult; Z99.2 Dependence on renal dialysis; Z88.1 Allergy status to other antibiotic agents; Z86.018 Personal history of other benign neoplasm; Z79.899 Other long term (current) drug therapy
CPT/HCPCS: 97597; 97598; 99215

== ENCOUNTER 2019-11-18 09:11 | Day surgery (SDC) | payer OTHER, BC ==
[~2019-11-18] VITALS: Ht 170.2 cm; Wt 77.0 kg
[~2019-11-18 09:11] MED LIST changes: -MULT-658 PO
[2019-11-18] MEDS ORDERED: SODIUM CHLORIDE 0.9% 1,000 ML IV SCH (10:02)
[2019-11-18] MEDS ORDERED: MULT-658 PO (10:07)
[2019-11-18 10:10] VITALS: BP 124/80
[2019-11-18 10:21] LABS: INTERNATIONAL NORMALIZED RATIO 1.28 (0.93-1.1); PROTHROMBIN TIME 13.2 Seconds (9.6-11.5)
== END 2019-11-18 11:45 | disposition home or self-care (01) ==
LOC: OUT 09:11 → EDSTATUS 10:00 → OUT 11:45
PROVIDERS: ATTEND Internal Medicine Gastroenterology
DX: K75.4 Autoimmune hepatitis (principal); K70.31 Alcoholic cirrhosis of liver with ascites; I10 Essential (primary) hypertension; Z88.1 Allergy status to other antibiotic agents; Z79.899 Other long term (current) drug therapy; Z72.89 Other problems related to lifestyle; Z80.3 Family history of malignant neoplasm of breast
CPT/HCPCS: 36415; 76937; 85610; J7030

== ENCOUNTER 2019-11-23 06:20 | Day surgery (SDC) | payer OTHER, BC ==
[~2019-11-23] VITALS: Ht 170.2 cm; Wt 78.0 kg
[~2019-11-23 06:20] MED LIST changes: +MULT-658 PO
[2019-11-23 06:59] VITALS: BP 109/72
[2019-11-23] MEDS ORDERED: LIDOCAINE 1%, 20ML ONE (07:22)
[2019-11-23 07:48] LABS: INTERNATIONAL NORMALIZED RATIO 1.21 (0.93-1.1); PROTHROMBIN TIME 12.5 Seconds (9.6-11.5)
[2019-11-23] MEDS ORDERED: FLUMAZENIL 0.1 MG/1 ML, 5ML ONE ×2 (08:04→08:06)
[2019-11-23] MEDS ORDERED: MIDAZOLAM 1 MG/ML, 5ML ONE (08:04)
[2019-11-23] MEDS ORDERED: FENTANYL PF 100 MCG/2ML ONE ×2 (08:04→08:06)
[2019-11-23] MEDS ORDERED: NALOXONE 1 MG/ML, 2ML ONE (08:04)
[2019-11-23] MEDS ORDERED: VISIPAQUE 270 MG/ML, 50ML BOTTLE ONE (11:48)
== END 2019-11-23 10:25 | disposition home or self-care (01) ==
LOC: OUT 06:20
PROVIDERS: ATTEND Internal Medicine Gastroenterology
DX: K75.4 Autoimmune hepatitis (principal); K70.31 Alcoholic cirrhosis of liver with ascites; I12.9 Hypertensive chronic kidney disease with stage 1 through stage 4 chronic kidney disease, or unspecified chronic kidney disease; N18.9 Chronic kidney disease, unspecified; E50.9 Vitamin A deficiency, unspecified; E53.9 Vitamin B deficiency, unspecified; E60 Dietary zinc deficiency; Z79.891 Long term (current) use of opiate analgesic; Z79.899 Other long term (current) drug therapy; Z88.1 Allergy status to other antibiotic agents; Z99.2 Dependence on renal dialysis
CPT/HCPCS: 36415; 37200; 75970; 85610; 88307; 88313; 99156; 99157; C1751; C1769; C1894; J2250; J3010; Q9966; J2310

== ENCOUNTER 2019-11-27 13:40 | Outpatient (CLI) | payer OTHER, BC | END 2019-11-27 23:59 | disposition home or self-care (01) | LOC: WOUND 13:40 | PROVIDERS: ATTEND Family Medicine | DX: I87.313 Chronic venous hypertension (idiopathic) with ulcer of bilateral lower extremity (principal); E11.621 Type 2 diabetes mellitus with foot ulcer; L97.522 Non-pressure chronic ulcer of other part of left foot with fat layer exposed; L97.512 Non-pressure chronic ulcer of other part of right foot with fat layer exposed; K70.31 Alcoholic cirrhosis of liver with ascites; R26.9 Unspecified abnormalities of gait and mobility; E11.22 Type 2 diabetes mellitus with diabetic chronic kidney disease; I12.0 Hypertensive chronic kidney disease with stage 5 chronic kidney disease or end stage renal disease; N18.6 End stage renal disease; E66.8 Other obesity; Z68.27 Body mass index [BMI] 27.0-27.9, adult; Z99.2 Dependence on renal dialysis; Z88.1 Allergy status to other antibiotic agents; Z86.018 Personal history of other benign neoplasm; Z79.899 Other long term (current) drug therapy; Z79.891 Long term (current) use of opiate analgesic | CPT/HCPCS: 97597; 97598; 99284 ==

== ENCOUNTER 2019-11-30 09:29 | Inpatient (IN) | payer OTHER, BC ==
[~2019-11-30] VITALS: Ht 170.2 cm; Wt 80.5 kg
--- NOTE | 2019-11-30 09:40 | NUR ---
BIB [facility] FROM [facility], WHERE PT WAS FOLLOWING UP WHEN SHE FELT WEAK, LOWERED SELF TO FLOOR WITH HELP FROM . BP PER [facility] 50/PALP, UP TO 70/31 AFTER 400 ML NS. PER , PT WAS SEEN LAST WEEK FOR LIVER BIOPSY. PORT FOR DIALYSIS REMOVED X6 WEEKS AGO. IV START WITH 500 ML TOTAL VIA [facility]. SECOND LINE UNDERWAY WITH LAB DRAW. ERMD AWARE OF BP, AND RECENT MED HX.
[2019-11-30] MEDS ORDERED: CEFTRIAXONE PMX 1GM/50ML 50 ML ONE (09:50)
[2019-11-30] MEDS ORDERED: IBUPROFEN 200 MG TABLET ONE (09:50)
--- NOTE | 2019-11-30 09:50 | NUR ---
AWAITING SECOND BLOOD CULTURE FOR ABX.
[2019-11-30] MEDS ORDERED: CEFTRIAXONE PMX 1GM/50ML 50 ML IVPB ONE (10:00)
[2019-11-30] MEDS ORDERED: IBUPROFEN 600 MG TABLET PO ONE (10:00)
[2019-11-30] MEDS ORDERED: SODIUM CHLORIDE 0.9% 1,000ML IVBOLUS ONE ×2 (10:00→10:30)
[2019-11-30] MEDS ORDERED: SODIUM CHLORIDE FLUSH 10ML SYR IVF ONE (10:00)
[2019-11-30] MEDS ORDERED: DEXTROSE 50%, 50ML SYRINGE ONE (10:10)
--- NOTE | 2019-11-30 10:20 | NUR ---
ERMD AWARE OF PT'S VS PROGRESS. CENTRAL LINE SET UP AT BEDSIDE. DISCUSSION OF PROCEDURE WITH PT'S . PT DENIES PAIN AT THIS TIME. ENCOURAGED TO TAKE SLOWER DEEP BREATHS. PT FOLLOWS COMMANDS, BUT THEN BECOMES TACHYPNEIC AGAIN.
[2019-11-30 10:26] LABS: INTERNATIONAL NORMALIZED RATIO 1.3 (0.93-1.1); PROTHROMBIN TIME 13.4 Seconds (9.6-11.5)
[2019-11-30 10:30] LABS: ALANINE AMINOTRANSFERASE 31 U/L (12-78); ALBUMIN 2.8 g/dL (3.4-5.0); CALCIUM 8.1 mg/dL (8.5-10.1); CHLORIDE 97 mmol/L (98-107); CREATININE 1.36 mg/dL (0.55-1.02)
[2019-11-30] MEDS ORDERED: DEXTROSE 50%, 50ML SYRINGE IVPush ONE (10:30)
[2019-11-30 10:34] LABS: ALKALINE PHOSPHATASE 165 U/L (45-117); BILIRUBIN,TOTAL 2.5 mg/dL (0.2-1.0); TROPONIN I 0.104 ng/mL (0.000-0.045)
[2019-11-30 10:35] LABS: MD YES; MEAN CORPUSCULAR HEMOGLOBIN 36.8 pg (27.0-34.8); MEAN CORPUSCULAR HGB CONC 34.4 g/dL (32.4-35.8); MEAN CORPUSCULAR VOLUME 107.1 fL (80-100); MEAN PLATELET VOLUME 6.1 fL (7.4-10.4); PLATELET COUNT 108 x10^3/uL (130-400); RED BLOOD COUNT 2.34 x10^6/uL (3.82-5.3); RED CELL DISTRIBUTION WIDTH 15.7 % (9.6-15.2)
[2019-11-30 10:38] LABS: <PLATELET ESTIMATE> DECREASED; ANISOCYTOSIS 1+; BAND#(MANUAL) 0.45 x10^3/uL; BANDS%(MANUAL) 15 % (0-7); LARGE PLATELETS 1+; LYMPH#(MANUAL) 0.96 x10^3/uL (1-3.4); LYMPHS% (MANUAL) 32 % (22-44); METAMYELOCYTES# (MANUAL) 0.03 x10^3/uL (0-0); METAMYELOCYTES% (MANUAL) 1 % (0-1); MONOS#(MANUAL) 0.12 x10^3/uL (0.3-2.7); MONOS% (MANUAL) 4 % (2-9); POLYCHROMASIA 1+; SEG#(MANUAL) 1.44 x10^3/uL (1.8-6.8); SEGS% (MANUAL) 48 % (42-75)
[2019-11-30 10:42] LABS: ANION GAP 15 mmol/L (5-15)
[2019-11-30 10:48] LABS: MICROSCOPIC INDICATED
--- NOTE | 2019-11-30 11:07 | NUR ---
CALL TO PHARMACY AND YELLOW SLIP SENT FOR LEVO. PT TOLERATED CENTRAL LINE PLACEMENT WELL. LAYING BACK IN BED, AWAKENS TO NAME. VERY LETHARGIC.
--- NOTE | 2019-11-30 11:18 | NUR ---
PT VERY LETHARGIC, ABLE TO SQUEEZE 'S HAND AND AWAKENS MINIMALLY. FALLS ASLEEP QUICKLY.
[2019-11-30] MEDS ORDERED: NOREPINEPHRINE 8 MG in SODIUM CHLORIDE 0.9% 242 ML IV PRN ×2 (11:30→12:30)
--- NOTE | 2019-11-30 11:32 | NUR ---
COMPLETION OF 2,500 ML NS FOR PT'S SEPSIS BOLUS COMPLETED.
--- NOTE | 2019-11-30 11:41 | NUR ---
ERMD AT BEDSIDE DISCUSSING FINDINGS WITH . PT ABLE TO OPEN EYES. PT FALLS ASLEEP EASILY. PER MD SET UP FOR SPINAL TAP.
[2019-11-30] MEDS ORDERED: NS + 40MEQ KCL 1,000 ML IV ONE ×2 (11:46→13:02)
[2019-11-30 11:48] LABS: O2 FLOW 4 L/min
[2019-11-30] MEDS ORDERED: POTASSIUM CHLORIDE 40 MEQ in SODIUM CHLORIDE 0.9% 100 ML IV ONE (12:00)
[2019-11-30] MEDS ORDERED: ASPIRIN 81 MG TABLET CHEW PO ONE (12:00)
--- NOTE | 2019-11-30 12:01 | NUR ---
LP UNDERWAY. NOT AT BEDSIDE. PT LETHARGIC, DIFFICULT TO WAKE, BUT MAEX4, ENCOURAGED TO BE STILL DURING LP. COOPERATIVE WITH REORIENTATION.
[2019-11-30] MEDS: POTASSIUM CHLORIDE 40 MEQ in SODIUM CHLORIDE 0.9% 1,000 ML IV SCH (12:03)
[2019-11-30] MEDS ORDERED: BISACODYL 10 MG SUPP PR PRN ×2 (12:30→15:00)
[2019-11-30] MEDS ORDERED: ONDANSETRON 2MG/ML, 2ML IVPush PRN (12:30)
[2019-11-30] MEDS ORDERED: ACETAMINOPHEN 325 MG TABLET PO PRN (12:30)
[2019-11-30] MEDS ORDERED: POLYETHYLENE GLYCOL 17 GM PACKET PO PRN (12:30)
[2019-11-30] MEDS ORDERED: VANCOMYCIN PER PHARMACY MC PRN (12:30)
[2019-11-30] MEDS ORDERED: OXYcodone IR 5MG TABLET PO PRN (12:30)
[2019-11-30 12:51] LABS: GLUCOSE, CSF 48 mg/dL (40-80); TOTAL PROTEIN,CSF 33 mg/dL (15-45)
--- NOTE | 2019-11-30 13:03 | NUR ---
RETURN FROM CT SCAN. PT TOLERATED WELL. PT SLOWER TO RESPOND WHEN ASKED NAME, BUT STILL GIVES APPROPRIATE NAME AND . REMAINS VERY LETHARGIC. SLIP SENT TO PHARM FOR ABX.
--- NOTE | 2019-11-30 13:15 | NUR ---
FIRST ATTEMPT FOR REPORT.
[2019-11-30 13:26] VITALS: BP 81/35
[2019-11-30] MEDS ORDERED: METRONIDAZOLE PMX 500MG/100ML 100 ML IV ONE (13:30)
--- NOTE | 2019-11-30 13:32 | NUR ---
ERMD AWARE OF FSBG. NO NEW ORDERS. CCU RN AWARE.
[2019-11-30] MEDS ORDERED: MAGNESIUM SULFATE PMX 4GM/100M 100 ML IV ONE (14:00)
[2019-11-30] MEDS ORDERED: OMNIPAQUE 350 MG/ML, 100ML BOTTLE ONE (14:05)
[2019-11-30] MEDS: MEROPENEM 500 MG in SODIUM CHLORIDE 0.9% 100 ML IV SCH (14:07)
[2019-11-30] MEDS ORDERED: NOREPINEPHRINE 32 MG in SODIUM CHLORIDE 0.9% 218 ML IV PRN ×2 (14:22→14:55)
[2019-11-30] MEDS ORDERED: VASOPRESSIN 20 UNIT in SODIUM CHLORIDE 0.9% 99 ML IV PRN ×2 (14:30→14:55)
[2019-11-30] MEDS ORDERED: PROPOFOL 100 ML IV PRN (14:55)
[2019-11-30] MEDS ORDERED: SENNA/DOCUSATE TABLET NG PRN (15:00)
[2019-11-30] MEDS ORDERED: DEXTROSE 4 GM TAB.CHEW PO PRN (15:00)
[2019-11-30] MEDS ORDERED: SENNA 176 MG/5 ML ORAL SOL NG PRN (15:00)
[2019-11-30] MEDS ORDERED: HEPARIN 5,000 UNITS/ML, 1ML SQ SCH (15:00)
[2019-11-30] MEDS ORDERED: GLUCAGON 1 MG IM PRN (15:00)
[2019-11-30] MEDS ORDERED: FENTANYL PF 100 MCG/2ML IVPush PRN (15:00)
[2019-11-30] MEDS ORDERED: DEXTROSE 50%, 50ML SYRINGE IVPush PRN (15:00)
[2019-11-30] MEDS ORDERED: PHARMACY MAY ADJ FOR RENAL FX MC SCH (15:00)
[2019-11-30] MEDS ORDERED: LACTULOSE 20 GM/30 ML UDC NG PRN (15:00)
[2019-11-30] MEDS ORDERED: LIDOCAINE-MPF 1%, 2ML ENDO PRN (15:00)
[2019-11-30] MEDS ORDERED: PHARMACOKINETIC MONITORING MC PRN (15:00)
[2019-11-30] MEDS ORDERED: MIDAZOLAM 1 MG/ML, 2ML IVPush PRN (15:00)
[2019-11-30 15:42] LABS: TRIGLYCERIDES 153 mg/dL (50-200)
[2019-11-30 15:45] LABS: TROPONIN I 0.449 ng/mL (0.000-0.045)
[2019-11-30] MEDS ORDERED: MIDAZOLAM HCL 50 MG in SODIUM CHLORIDE 0.9% 40 ML IV PRN (16:00)
[2019-11-30] MEDS ORDERED: VANCOMYCIN 1,600 MG in SODIUM CHLORIDE 0.9% 250 ML IV SCH (16:00)
[2019-11-30] MEDS ORDERED: SODIUM BICARBONATE 8.4% 100 MEQ in DEXTROSE 5% 1,000 ML IV SCH (17:00)
[2019-11-30] MEDS ORDERED: ETOMIDATE 20 MG/10 ML ONE (19:24)
[2019-11-30] MEDS ORDERED: PROPOFOL 10 MG/ML, 100ML IV ONE (19:24)
[2019-11-30] MEDS ORDERED: SODIUM BICARB 8.4%, 50ML SYRINGE IVPush ONE ×4 (19:30→22:00)
[2019-11-30] MEDS: PHENYLEPHRINE 50 MG in SODIUM CHLORIDE 0.9% 245 ML IV PRN ×2 (20:13→23:33)
[2019-11-30] MEDS ORDERED: SODIUM CHLORIDE FLUSH 10ML SYR IVF SCH (21:00)
[2019-11-30] MEDS ORDERED: SODIUM CHLORIDE 0.9% 500 ML IV ONE (21:00)
[2019-11-30] MEDS ORDERED: ALBUMIN HUMAN 25% 100 ML IV ONE ×4 (21:00→22:00)
[2019-11-30 21:48] LABS: TROPONIN I 0.933 ng/mL (0.000-0.045)
[2019-11-30] MEDS ORDERED: SODIUM CHLORIDE 0.9%, 500ML IVBOLUS ONE (22:00)
[2019-11-30] MEDS ORDERED: DOPAMINE/D5W PMX 250 ML IV PRN (22:00)
[2019-11-30] MEDS ORDERED: SODIUM BICARBONATE 1 MEQ/ML, 50ML VIAL ONE (23:21)
[2019-11-30] MEDS ORDERED: SODIUM BICARBONATE 1 MEQ/ML, 50ML VIAL IVPush ONE ×2 (23:30)
[2019-12-01] MEDS: POTASSIUM CHLORIDE 40 MEQ in SODIUM CHLORIDE 0.9% 1,000 ML IV SCH (00:15)
[2019-12-01] MEDS: MEROPENEM 500 MG in SODIUM CHLORIDE 0.9% 100 ML IV SCH (01:17)
[2019-12-01] MEDS ORDERED: LORazepam 2 MG/ML, 1ML IV ONE (02:30)
[2019-12-01] MEDS ORDERED: MORPHINE SULFATE 4 MG/ML, 1ML IVPush PRN (02:30)
[2019-12-01] MEDS ORDERED: MORPHINE SULFATE 4 MG/ML, 1ML IV ONE (02:30)
[2019-12-01] MEDS ORDERED: ONDANSETRON 2MG/ML, 2ML IVPush PRN (02:30)
[2019-12-01] MEDS ORDERED: LORazepam 2 MG/ML, 1ML IVPush PRN (02:30)
[2019-12-01] MEDS ORDERED: SENNA/DOCUSATE TABLET PO SCH (09:00)
[2019-12-01] MEDS ORDERED: SODIUM CHLORIDE 0.9% 500 ML IV SCH ×2 (13:00)
[2019-12-01] MEDS ORDERED: SODIUM BICARBONATE 8.4% 150 MEQ in STERILE WATER 1,000 ML IV SCH (17:00)
== END 2019-12-01 05:35 | disposition expired | DRG 871 ==
LOC: ED 10:21 → EDIP 12:03 → CCU 14:00
PROVIDERS: ADMIT Internal Medicine; ATTEND Internal Medicine
PROC: 009U3ZZ Drainage of Spinal Canal, Percutaneous Approach (ICD-10-PCS; principal; 2019-11-30)
PROC: 05HM33Z Insertion of Infusion Device into Right Internal Jugular Vein, Percutaneous Approach (ICD-10-PCS; 2019-11-30)
PROC: 5A1935Z Respiratory Ventilation, Less than 24 Consecutive Hours (ICD-10-PCS; 2019-11-30)
PROC: 0BH17EZ Insertion of Endotracheal Airway into Trachea, Via Natural or Artificial Opening (ICD-10-PCS; 2019-11-30)
DX: A41.9 Sepsis, unspecified organism (principal); E43 Unspecified severe protein-calorie malnutrition; J96.00 Acute respiratory failure, unspecified whether with hypoxia or hypercapnia; N17.0 Acute kidney failure with tubular necrosis; N18.6 End stage renal disease; R65.21 Severe sepsis with septic shock; K65.9 Peritonitis, unspecified; I12.0 Hypertensive chronic kidney disease with stage 5 chronic kidney disease or end stage renal disease; Z99.11 Dependence on respirator [ventilator] status; K70.30 Alcoholic cirrhosis of liver without ascites; D53.9 Nutritional anemia, unspecified; D69.6 Thrombocytopenia, unspecified; E16.2 Hypoglycemia, unspecified; E83.42 Hypomagnesemia; E87.6 Hypokalemia; F10.10 Alcohol abuse, uncomplicated; Z96.651 Presence of right artificial knee joint; K81.9 Cholecystitis, unspecified; Z20.828 Contact with and (suspected) exposure to other viral communicable diseases; Z88.1 Allergy status to other antibiotic agents; Z80.3 Family history of malignant neoplasm of breast; Z82.49 Family history of ischemic heart disease and other diseases of the circulatory system; Z68.27 Body mass index [BMI] 27.0-27.9, adult
CPT/HCPCS: 36556; 36600; 62270; 71045; 71260; 74177; 80053; 80307; 81001; 82140; 82533; 82803; 82945; 82962; 83605; 83735; 84100; 84145; 84157; 84478; 84484; 85025; 85610; 87040; 87070; 87081; 87086; 87205; 87529; 87635; 89051; 93005; 94002; 94003; 96361; 96374; 96375; 99292; G0378; J0696; J1265; J1644; J2185; J2250; J2405; J2704; J3370; J3480; J7070; P9047; Q9967; J2060; J2270; J2370; J3475; J7030; J7040; J7050